=== PATIENT | female | born 1980 | race Hispanic/Latino ===

== ENCOUNTER 2021-05-19 22:41 | Emergency (ER) | payer SELFPAY ==
[2021-05-20] MEDS ORDERED: Ibuprofen 200 MG TAB ONE (00:12)
== END 2021-05-20 00:20 | disposition home or self-care (01) ==
LOC: ERS 22:41
DX: S83.92XA Sprain of unspecified site of left knee, initial encounter (principal); W19.XXXA Unspecified fall, initial encounter